=== PATIENT | male | born 1970 | race Caucasian/White ===

== ENCOUNTER → 2024-03-28 | Day surgery (SDC) | payer OTHER ==
[~2024-03-28] VITALS: Ht 190.5 cm; Wt 106.6 kg
[~2024-03-28] MED LIST: Lactated Ringer's Solution 1,000 ML IV ONE; Midazolam Hydrochloride 2 MG/2 ML VIAL IV ONE; Midazolam Hydrochloride 2 MG/2 ML VIAL ONE; PROPOFOL 200 MG/20 ML VIAL IV ONE
[2024-03-28 12:45] VITALS: BP 113/70
[2024-03-28 14:58] VITALS: BP 105/59
[2024-03-28 15:13] VITALS: BP 105/60
[2024-03-28 15:28] VITALS: BP 110/69
== END | disposition home or self-care (01) ==
LOC: SDC 03-24 08:45
PROVIDERS: ATTEND Surgery
DX: Z12.11 Encounter for screening for malignant neoplasm of colon (principal); K62.89 Other specified diseases of anus and rectum; K64.1 Second degree hemorrhoids; Z96.641 Presence of right artificial hip joint